=== PATIENT | female | born 2000 | race Caucasian/White ===

== ENCOUNTER 2019-10-18 07:41 | Emergency (ER) | payer BC ==
--- OUTSIDE RECORDS SUMMARY | 2019-10-18 07:50 | XMS REPORT | Continuity of Care Document ---
:1999 External Reference #:[id number] [facility] Name [facility] Address Formerly [facility] [place] [address] Care Team Providers Name Role Phone Jennifer Moncada MD - Obstetrics & Care Team Information Otolaryngologist [phone] Gynecology [facility] - Radiology Care Team Information Otolaryngologist [phone] Jory Burleson M.D. - Care Team Information Otolaryngologist [phone] Otolaryngology Psychology - Pat Care Team Information Otolaryngologist [phone] Problems Active Problems Provider Date Asthma Onset: Anxiety Payton Sanchez MD Onset: 01/20/2019 Social History Type Date Description Comments Sex Female Tobacco Use Reviewed: 08/13/19 Never Smoked Cigarettes ETOH Use Denies alcohol use Tobacco Use Reviewed: 08/13/19 Patient has never smoked Recreational Drug Use Denies Drug Use Smoking Status Reviewed: 08/13/19 Patient has never smoked Tattoo/Piercing Pierced navel Tattoo/Piercing Pierced ears Guns in Home No Allergies, Adverse Reactions, Alerts Description No Known Drug Allergies Medications Active Medications SIG Qnty Indications Ordering Provider Date Zyrtec Allergy 1 by mouth every 30caps J30.9 Chanel Kaur MD 01/28/2017 10mg day prn Capsules Xopenex 1 vial via 72ml J45.909 Payton Sanchez MD 12/06/2016 0.63mg/3ML nebulizer every Nebulizer 4-6 hours as needed Pulmicort 1 vial via twice 60ml J45.909 Juan Hernandez JR, 12/06/2016 0.5mg/2ML a day as needed Suspension Xopenex HFA 1-2 puffs by 15gm J45.998 Aleksander 11/29/2016 mouth every 4-6 MD Stephanie 45mcg/Act Aerosol hours as needed cough/wheeze--use s before sports also J45.909 Melodetta 24 Fe Z92.0 Jennifer Moncada MD 1-20mg-mcg(24) Chewtabs Effexor XR 75mg 1 po qd Unknown Caps ER 24HR History Medications Sertraline HCL 1 by mouth every 18tabs F41.1 Payton Sanchez 04/21/2019 - 50mg day for two weeks, 08/13/2019 Tablets then 1/2 by mouth for 1 week, then stop medication F42.8 Lexapro 1/2 by mouth 30tabs Payton Sanchez 04/21/2019 - 10mg every day for 08/13/2019 Tablets two weeks and then 1 by mouth every day Diflucan 1 by mouth at 2tabs J03.80 Juan Hernandez JR, 03/01/2019 - 150mg onset,december repeat 04/08/2019 Tablets in 3 days as needed Macrobid 1 by mouth twice 14caps R30.0 Delbert Valdovinos 02/28/2019 - 100mg a day x 7 days MD Stan 04/08/2019 Capsules Bactrim DS 1 by mouth twice 14tabs R30.0 Delbert Valdovinos 02/23/2019 - a day x 7 days MD Stan 02/28/2019 800-160mg Tablets Pyridium take 1 tablet by 12tabs R30.0 Delbert Valdovinos 02/23/2019 - 100mg mouth 3 times MD Stan 02/27/2019 Tablets per day Medications Administered in Office Medication SIG Qnty Indications Ordering Provider Date TB Intradermal Test Unknown 2019 Injection TB Intradermal Test ALEXI Cristina 01/11/2019 Injection TB Intradermal Test Olivia Cao PA-C 02/17/2018 Injection Immunizations CPT Code Status Date Vaccine Lot # [id number] Given 02/26/2017 Hepatitis A Vaccine Peds/Adoles. (To Age 19) 2 [id number] Dose Schedule 83599 Given 03/30/2015 Menactra - Meningococcal Conjugate Vaccine 72238 Given 03/30/2015 Varicella (Chicken Pox) Vaccine 16619 Given 04/25/2013 Adacel - Tdap 71391 Given 01/30/2004 MMR Vaccine 05709 Given 01/30/2004 Daptacel - DTaP Vaccine 24428 Given 2003 Poliovirus Vaccine Subcutaneous 55835 Given 09/22/2000 Prevnar - Pneumococcal Conjugate Vaccine 80638 Given 07/14/2000 Daptacel - DTaP Vaccine 25283 Given 06/25/2000 Prevnar - Pneumococcal Conjugate Vaccine 49882 Given 04/17/2000 Hib PRP-T Conjugate 4 Dose Schedule 81427 Given 01/16/2000 MMR Vaccine 05455 Given 01/16/2000 Varicella (Chicken Pox) Vaccine 00502 Given 1999 Hepatitis B Vaccine Pediatric/Adolescent 94605 Given 1999 Hepatitis B Vaccine Pediatric/Adolescent 57334 Given 1999 Poliovirus Vaccine Subcutaneous 44348 Given 1999 Daptacel - DTaP Vaccine 32965 Given 1999 Hib PRP-T Conjugate 4 Dose Schedule 85245 Given 1999 Poliovirus Vaccine Subcutaneous 31081 Given 1999 Daptacel - DTaP Vaccine 12212 Given 1999 Hib PRP-T Conjugate 4 Dose Schedule 98526 Given 1999 Daptacel - DTaP Vaccine 62389 Given 1999 Hib PRP-T Conjugate 4 Dose Schedule 18935 Given 1999 Hepatitis B Vaccine Pediatric/Adolescent 90028 Refused 01/20/2019 Bexsero Meningococcal Vacc 2 Dose Schedule 78290 Refused 01/20/2019 Hepatitis A Vaccine Peds/Adoles. (To Age 19) 2 Dose Schedule 77569 Refused 01/20/2019 Flu, Multi-Dose Vial W/Preservative (Age 6Mo And Up )Quad 0.5 13563 Refused 01/20/2019 Pneumococcal 23 Vaccine Vital Signs Date Vital Result Comment 08/13/2019 8:29am BP Systolic 104 mmHg BP Diastolic 80 mmHg Heart Rate 88 /min Body Temperature 98.6 F Respiratory Rate 16 /min Weight 142.00 lb Weight 64.411 kg Height 64.25 inches 5'4.25" BMI (Body Mass Index) 24.2 kg/m2 04/08/2019 1:11pm BP Systolic 118 mmHg BP Diastolic 68 mmHg Heart Rate 82 /min Body Temperature 98.6 F Respiratory Rate 16 /min Weight 136.00 lb Weight 61.690 kg Results Test Acquired Date Facility Test Result H/L Range Note Laboratory test 08/13/2019 [facility] VitD-hydrox 29 ng/mL Low 30-100 finding y CBC/Automated 08/13/2019 [facility] WBC 4.26 k/uL Low 4.60-10.20 Differential Abs Neut 3.01 2.00-7.50 % Neut 70.7 % 37.0-80.0 Abs Lymphs 0.58 K/UL Low 1.20-4.80 % Lymphs 13.7 % 10.0-50.0 Abs Monos 0.522 0.000-0.900 % Monos 12.30 % High 0.00-12.00 Abs Eos 0.081 0.000-0.700 % Eos 1.91 % 0.00-7.00 Abs Basos 0.062 0.000-0.200 % Baso 1.47 % 0.00-4.00 RBC 5.02 m/uL 4.04-6.13 Hemoglobin 14.9 g/dL 12.2-18.1 Hematocrit 44.2 % 37.7-47.0 MCV 88.1 fL 80.0-97.0 MCH 29.7 pg 27.0-31.2 MCHC 33.7 g/dL 31.8-35.4 RDW 10.9 % Low 11.6-14.8 Platelet 198 K/uL 142-424 MPV 6.9 fL 0.0-99.9 Comprehensive Metabolic 08/13/2019 [facility] Glucose 75.00 mg/dL 70.00- 110.00 Panel Urea Nitrogen 9 mg/dL 7-19 Creatinine 0.9 mg/dL 0.6-1.1 GFR 86.57 mL/min 1 Sodium 138 mmol/L 136-145 Potassium 4.6 mmol/L 3.5-5.1 Chloride 104 mmol/L 98-107 Total Protein 7.0 g/dL 6.4-8.3 Albumin 3.80 g/dL 3.30-5.00 Alanine Aminotransferase 23 U/L 0-55 Aspartate Aminotransferase 28 U/L 5-34 Alkaline Phosphatase 70 U/L 40-150 Carbon Dioxide 24.00 mmol/L 22.00-31.00 Albumin/Globulin 1.19 Ratio Osmolality 283.38 275.00-295.00 Calcium 9.30 mg/dL 8.90-10.40 Total Bilirubin 0.4 mg/dL 0.2-1.2 Globulin 3.20 2.30-4.20 BUN/Creatinine 10.23 Ratio Laboratory test finding 08/13/2019 [facility] Ferritin 30.12 ng/mL 5.00- 204.00 Iron Binding Capacity 426 g/dL (250-450) 2 Iron 83.00 g/dL 25.00-156.00 Vitamin B12 253.00 pg/mL 213.00-816.00 Folic Acid 14.80 ng/mL 7.00-31.40 TSH 1.418 uIU/mL 0.350-4.940 Urinalysis/Microscopic 04/08/2019 [facility] Color Yellow Appearance Clear Clear Leukocytes Trace Negative Nitrite Negative Negative Urobilinogen 0.2 E.U./dL 0.2-1.0 Protein Negative Negative pH 7.5 5.0-8.5 Blood (Hemoglobin) Trace-intact Abnormal Negative Specific Brady 1.015 1.005-1.025 Ketone Negative Negative Bilirubin Negative Negative Glucose Negative Negative Urine WBC 3-5 Abnormal 0-2 Urine RBC 0-2 0-2 Laboratory test 04/08/2019 [facility] Urine Culture Comment 3 finding Urinalysis/Microscopic 02/23/2019 [facility] Color Light yellow Abnormal Appearance Clear Clear Leukocytes 1+ Abnormal Negative Nitrite Negative Negative Urobilinogen 0.2 E.U./dL 0.2-1.0 Protein Negative Negative pH 7.0 5.0-8.5 Blood (Hemoglobin) 3+ Negative Specific Brady 1.020 1.005-1.025 Ketone Negative Negative Bilirubin Negative Negative Glucose Negative Negative Urine WBC 10-20 0-2 Urine RBC TNTC 0-2 Bacteria 1+ Abnormal None Observed Squamous Epithelial Cells 3-5 Abnormal Laboratory test finding 02/23/2019 [facility] Urine Culture Comment 4 1 NORMAL FUNCTION OR MILD RENAL DISEASE:>60 ml/min ADVANCED RENAL DISEASE:15-59 ml/min RENAL FAILURE:<15 ml/min 2 Unless otherwise specified, testing performed by [facility] [place] [facility], [address] [address] 3 SPECIMEN DESCRIPTION MIDSTREAM URINE,CLEAN CATCH CULTURE RESULTS MIXED UROGENITAL FORD; PLEASE SUBMIT A NEW SPEC IMEN IF CLINICALLY INDICATED. REPORT STATUS FINAL 04/09/2019 Unless otherwise specified, testing performed by [facility] [email or web address] [address] 4 SPECIMEN DESCRIPTION MIDSTREAM URINE,CLEAN CATCH CULTURE RESULTS >100,000 CFU/ML ESCHERICHIA COLI REPORT STATUS FINAL 02/25/2019 ORGANISM ESCHERICHIA COLI METHOD ANGELICA AMIKACIN <=2 SUSCEPTIBLE AMOXICILLIN/CLAVULANIC AC 4/2 SUSCEPTIBLE AMPICILLIN >=32 RESISTANT ISOLATES SUSCEPTIBLE TO AMPICILLIN ARE ALSO SUSCEPTIBLE TO AMOXICILLIN. CEFAZOLIN <=4 SUSCEPTIBLE FOR UNCOMPLICATED UTI'S,CEFAZOLIN ANGELICA RESULTS LESS THAN OR EQUAL TO 16 MCG/ML PREDICT SUSCEPTIBILITY OF THE FOLLOWING ORAL CEPHALOSPORINS:CEFACLOR,CEFDINIR, CEFPODOXIME,CEFPROZIL,CEFUROXIME AND CEPHALEXIN. IMPORTANT NOTE FOR COMPLICATED INFECTIONS SUCH UROSEPSIS CEFAZOLIN SHOULD HAVE A ANGELICA OF LESS THAN OR EQUAL TO 2 TO BE CONSIDERED SUSCEPTIBLE. CONTACT MICROBIOLOGY FOR FURTHER TESTING IF WARRANTED. CEFEPIME <=1 SUSCEPTIBLE CEFOXITIN <=4 SUSCEPTIBLE CEFTAZIDIME <=1 SUSCEPTIBLE CEFTRIAXONE <=1 SUSCEPTIBLE CIPROFLOXACIN >=4 RESISTANT GENTAMICIN >=16 RESISTANT LEVOFLOXACIN >=8 RESISTANT MEROPENEM <=0.25 SUSCEPTIBLE NITROFURANTOIN <=16 SUSCEPTIBLE PIPERACILLIN/TAZOBACTAM <=4 SUSCEPTIBLE TETRACYCLINE >=16 RESISTANT TOBRAMYCIN 8 INTERMEDIATE TRIMETH/SULFA >=16/304 RESISTANT ERTAPENEM <=0.5 SUSCEPTIBLE Unless otherwise specified, testing performed by [employer] [address] [place] [address] Procedures Description No Information Available Medical Devices Description No Information Available Encounters Type Date Location Provider Dx Diagnosis Office Visit 08/13/2019 [address] Coleen Cordon R53.83 Other fatigue 8:15a THUAN Carney R00.0 Tachycardia, unspecified F41.1 Generalized anxiety disorder Office Visit 04/08/2019 [address] Payton F42.8 Other 1:00p Silvia Sanchez MD obsessive-compulsive disorder F41.1 Generalized anxiety disorder R30.0 Dysuria Office Visit 02/23/2019 10:15a [address] Lexis Meredith PA-C R30.0 Dysuria Assessments Date Code Description Provider 08/13/2019 R53.83 Other fatigue LIBAN RodríguezP- 08/13/2019 R00.0 Tachycardia, unspecified Coleen Carney [facility] 08/13/2019 F41.1 Generalized anxiety disorder Coleen Carney [facility] 04/08/2019 F42.8 Other obsessive-compulsive disorder Payton Sanchez MD 04/08/2019 F41.1 Generalized anxiety disorder Payton Sanchez MD 04/08/2019 R30.0 Dysuria Payton Sanchez MD 02/23/2019 R30.0 Dysuria Lexis Meredith PA-C Plan of Treatment 08/13/2019 - Coleen Carney [facility].83 Other fatigueComments:Will check labs for underlying causes and advise.R00.0 Tachycardia, unspecifiedComments: Monitor symptoms. T/C Cardiology referral if sx's persist. Mother with history of WPWF41.1 Generalized anxiety disorderComments:Continue current medication. Make sure you stay active and eat healthy, this will help with mood. Call the office with any problems or concerns. Functional Status Functional Condition Comment Date Status .None Active Mental Status Description No Information Available Referrals Refer to Reason for Referral Status Appt Date [facility] [address] [address] [place] [address] [phone]
--- OUTSIDE RECORDS SUMMARY | 2019-10-18 07:50 | XMS REPORT | Continuity of Care Document ---
:1999 External Reference #:[id number] Author Name [facility] Address [facility] [place] [address] Care Team Providers Name Role Phone Jennifer Moncada MD - Obstetrics & Care Team Information [employer]tron[employer] Technician [phone] Gynecology [facility] - Radiology Care Team Information [employer]tron[employer] Technician Jory Burleson M.D. - Care Team Information [employer]tron[employer] Technician [phone] Otolaryngology Psychology - Pat Care Team Information [employer]tron[employer] Technician [phone] Daniel Khan - Cardiovascular Care Team Information [employer]tron[employer] Technician Disease Problems Active Problems Provider Date Asthma Onset: [...] Jennifer Moncada MD 1-20mg-mcg(24) Chewtabs Effexor XR 1 by mouth 90caps Payton Sanchez MD 75mg Caps ER 24HR every day History Medications Sertraline HCL 1 by mouth every 18tabs F41.1 Payton Sanchez 04/21/2019 - 50mg day for two weeks, 08/13/2019 Tablets then 1/2 by mouth for 1 week, then stop medication F42.8 Lexapro 1/2 by mouth 30tabs Payton Sanchez MD 04/21/2019 - 10mg every day for 08/13/2019 Tablets two weeks and then 1 by mouth every day Medications Administered in Office Medication SIG Qnty Indications Ordering Provider Date TB Intradermal Test Unknown 2019 Injection TB Intradermal Test ALEXI Cristina 01/11/2019 Injection TB Intradermal Test Olivia Cao PA-C 02/17/2018 Injection Immunizations CPT Code Status Date Vaccine Lot # [id number] Given 02/26/2017 Hepatitis A Vaccine Peds/Adoles. (To Age 19) 2 [id number] Dose Schedule 62321 Given 03/30/2015 Menactra - Meningococcal Conjugate Vaccine 93688 Given 03/30/2015 Varicella (Chicken Pox) Vaccine 47637 Given 04/25/2013 Adacel - Tdap 10845 Given 01/30/2004 MMR Vaccine 87033 Given 01/30/2004 Daptacel - DTaP Vaccine 56941 Given 2003 Poliovirus Vaccine Subcutaneous 98692 Given 09/22/2000 Prevnar - Pneumococcal Conjugate Vaccine 29765 Given 07/14/2000 Daptacel - DTaP Vaccine 13680 Given 06/25/2000 Prevnar - Pneumococcal Conjugate Vaccine 07783 Given 04/17/2000 Hib PRP-T Conjugate 4 Dose Schedule 94158 Given 01/16/2000 MMR Vaccine 97329 Given 01/16/2000 Varicella (Chicken Pox) Vaccine 67894 Given 1999 Hepatitis B Vaccine Pediatric/Adolescent 61312 Given 1999 Hepatitis B Vaccine Pediatric/Adolescent 77520 Given 1999 Poliovirus Vaccine Subcutaneous 13526 Given 1999 Daptacel - DTaP Vaccine 06832 Given 1999 Hib PRP-T Conjugate 4 Dose Schedule 47138 Given 1999 Poliovirus Vaccine Subcutaneous 34690 Given 1999 Daptacel - DTaP Vaccine 93696 Given 1999 Hib PRP-T Conjugate 4 Dose Schedule 65913 Given 1999 Daptacel - DTaP Vaccine 04239 Given 1999 Hib PRP-T Conjugate 4 Dose Schedule 56965 Given 1999 Hepatitis B Vaccine Pediatric/Adolescent 62726 Refused 01/20/2019 Bexsero Meningococcal Vacc 2 Dose Schedule 03544 Refused 01/20/2019 Hepatitis A Vaccine Peds/Adoles. (To Age 19) 2 Dose Schedule 42496 Refused 01/20/2019 Flu, Multi-Dose Vial W/Preservative (Age 6Mo And Up )Quad 0.5 08320 Refused 01/20/2019 Pneumococcal 23 Vaccine Vital Signs [...] Date Facility Test Result H/L Range Note CBC/Automated 09/08/2019 [facility] WBC 5.84 k/uL 4.60-10.20 Differential Abs Neut 3.02 2.00-7.50 % Neut 51.7 % 37.0-80.0 Abs Lymphs 2.22 K/UL 1.20-4.80 % Lymphs 38.1 % 10.0-50.0 Abs Monos 0.393 0.000-0.900 % Monos 6.73 % 0.00-12.00 Abs Eos 0.148 0.000-0.700 % Eos 2.53 % 0.00-7.00 Abs Basos 0.058 0.000-0.200 % Baso 1.00 % 0.00-4.00 RBC 4.95 m/uL 4.04-6.13 Hemoglobin 14.9 g/dL 12.2-18.1 Hematocrit 44.0 % 37.7-47.0 MCV 88.9 fL 80.0-97.0 MCH 30.1 pg 27.0-31.2 MCHC 33.8 g/dL 31.8-35.4 RDW 10.8 % Low 11.6-14.8 Platelet 242 K/uL 142-424 MPV 6.7 fL 0.0-99.9 Laboratory test finding 08/13/2019 [facility] VitD-hydroxy 29 ng/mL Low 30-100 CBC/Automated 08/13/2019 [facility] WBC 4.26 k/uL Low 4.60-10.20 Differential [...] BUN/Creatinine 10.23 Ratio Laboratory test finding 08/13/2019 [facility] Ferritin 30.12 ng/mL 5.00- 204.00 Iron Binding Capacity 426 g/dL (250-450) 2 Iron 83.00 g/dL 25.00-156.00 Vitamin B12 253.00 pg/mL 213.00-816.00 Folic Acid 14.80 ng/mL 7.00-31.40 TSH 1.418 uIU/mL 0.350-4.940 Urinalysis/Microscopic 04/08/2019 [facility] Color Yellow Appearance Clear Clear Leukocytes Trace Negative Nitrite Negative Negative Urobilinogen 0.2 E.U./dL 0.2-1.0 Protein Negative Negative pH 7.5 5.0-8.5 Blood (Hemoglobin) Trace-intact Abnormal Negative Specific Maybee 1.015 1.005-1.025 Ketone Negative Negative Bilirubin Negative Negative Glucose Negative Negative Urine WBC 3-5 Abnormal 0-2 Urine RBC 0-2 0-2 Laboratory test finding 04/08/2019 [facility] Urine Culture Comment 3 1 NORMAL FUNCTION OR MILD RENAL DISEASE:>60 ml/min ADVANCED RENAL DISEASE:15-59 ml/min RENAL FAILURE:<15 ml/min 2 Unless otherwise specified, testing performed by [facility], [address] [address] 3 SPECIMEN DESCRIPTION MIDSTREAM URINE,CLEAN CATCH CULTURE RESULTS MIXED UROGENITAL FORD; PLEASE SUBMIT A NEW SPEC IMEN IF CLINICALLY INDICATED. REPORT STATUS FINAL 04/09/2019 Unless otherwise specified, testing performed by [facility] [employer] [address] [place] [address] Procedures Description No Information Available Medical Devices Description No Information Available Encounters Type Date Location Provider Dx Diagnosis Office Visit 08/13/2019 [address] Coleen Cordon R53.83 Other fatigue 8:15a LIBAN CarneyP- R00.0 Tachycardia, unspecified F41.1 Generalized anxiety disorder Office Visit 04/08/2019 [address] Payton F42.8 Other 1:00p Silvia Sanchez MD obsessive-compulsive disorder F41.1 Generalized anxiety disorder R30.0 Dysuria Assessments Date Code Description Provider 09/08/2019 D72.819 Decreased white blood cell count, BOB Rodríguez-BC unspecified 08/13/2019 R53.83 Other fatigue BOB Rodríguez-ATUL 08/13/2019 R00.0 Tachycardia, unspecified BOB Rodríguez-BC 08/13/2019 F41.1 Generalized anxiety disorder THUAN Rodríguez 04/08/2019 F42.8 Other obsessive-compulsive disorder Payton Sanchez MD 04/08/2019 F41.1 Generalized anxiety disorder Payton Sanchez MD 04/08/2019 R30.0 Dysuria Payton Sanchez MD Plan of Treatment 08/13/2019 - Coleen Carney [facility] Other fatigueComments:Will check labs for underlying [...] to Reason for Referral Status Appt Date Daniel Khan cardiac evaluation for Palpitations with exercise, Sent 00 Family Hx of WPW [facility] [address], [address] [place] [address] [phone] [facility] Anxiety and OCD Closed [address] [facility] [address] J[place] Simon [address] [phone]
[2019-10-18 07:55] VITALS: BP 112/75
--- NOTE | 2019-10-18 08:07 | UC ---
Complaint Female HPI - HPI Summary HPI Summary: 19-year-old female presents stating onset of dysuria, frequency, and urgency this morning. Associated with some mild suprapubic discomfort. Denies fever, chills, back or flank pain, nausea, vomiting, hematuria, or vaginal discharge. - History Of Current Complaint Chief Complaint: UCGU Stated Complaint: URINARY Time Seen by Provider: 10/18/19 07:57 Hx Obtained From: Patient Hx Last Menstrual Period: 09/22/2019 Pain Intensity: 2 - Allergies/Home Medications Allergies/Adverse Reactions: Allergies Allergy/AdvReac Type Severity Reaction Status Date / Time No Known Allergies Allergy Verified 10/18/19 07:52 Home Medications: Home Medications Control Pill 1 tab PO DAILY 10/18/19 [History Confirmed 10/18/19] Phenazopyridine TAB* [Pyridium 100 mg TAB*] 100 mg PO TID #6 tab 10/18/19 [Rx] Sulfamethox/Trimethoprim DS* [Bactrim DS 800/160 TAB*] 1 tab PO BID #10 tab [Rx] Venlafaxine EXT RELEASE CAP* [Effexor Xr CAP*] 150 mg PO DAILY 10/18/19 [ History Confirmed 10/18/19] PMH/Surg Hx/FS Hx/Imm Hx Previously Healthy: Yes Psychological History: Depression - Surgical History Surgical History: Yes Surgery Procedure, Year, and Place: L shoulder labrum repair. tonsillectomy - Family History Known Family History: Positive: Non-Contributory - Social History Occupation: Student Lives: Dormitory/Roommates Alcohol Use: Occasionally Substance Use Type: None Smoking Status (MU): Never Smoked Tobacco Review of Systems All Other Systems Reviewed And Are Negative: Yes Constitutional: Negative: Fever, Chills Respiratory: Positive: Negative Cardiovascular: Positive: Negative Gastrointestinal: Positive: Abdominal Pain - Suprapubic. Negative: Vomiting, Nausea Genitourinary: Positive: Dysuria, Frequency, Urgency. Negative: Hematuria, Vaginal/Penile Discharge Musculoskeletal: Positive: Negative Neurological/Mental Status: Positive: Negative Is Patient Immunocompromised?: No Physical Exam - Summary Physical Exam Summary: GENERAL APPEARANCE: Well developed, well nourished, alert and cooperative, and appears to be in no acute distress. EYES: Conjunctiva clear. No drainage. EARS: External auditory canals and tympanic membranes clear, hearing grossly intact. NOSE: No nasal discharge. THROAT: Pharynx normal. Tonsils surgically absent. Uvula midline. NECK: Neck supple, non-tender without lymphadenopathy. CARDIAC: Normal S1 and S2. No S3, S4 or murmurs. Rhythm is regular. There is no peripheral edema, cyanosis or pallor. Extremities are warm and well perfused. Capillary refill is less than 2 seconds. Peripheral pulses intact. LUNGS: Clear to auscultation without rales, rhonchi, wheezing or diminished breath sounds. ABDOMEN: Positive bowel sounds. Soft, nondistended, nontender. No guarding or rebound. No masses or hepatosplenomegally. No CVA tenderness. MUSKULOSKELETAL: ROM intact to all extremities. No joint erythema or tenderness. Normal muscular development. Normal gait. SKIN: Skin normal color, texture and turgor with no lesions or eruptions. Triage Information Reviewed: Yes Vital Signs: Initial Vital Signs Temp 97.6 F 10/18/19 07:50 Pulse 102 10/18/19 07:50 Resp 14 10/18/19 07:50 BP 112/75 10/18/19 07:50 Pulse Ox 97 10/18/19 07:50 Vital Signs Reviewed: Yes Complaint Female Dx - Course Course Of Treatment: 19-year-old female presents stating onset of dysuria, frequency, and urgency this morning. Associated with some mild suprapubic discomfort. Denies fever, chills, back or flank pain, nausea, vomiting, hematuria, or vaginal discharge. Afebrile. Vital signs stable. Patient's exam was overall unremarkable. Point- of-care urinalysis showed 2+ leukocyte esterase, trace blood, and 1+ protein. Urine negative. Results reviewed with the patient. We'll treat for a urinary tract infection with Bactrim DS 1 tablet twice daily 5 days as well as provide her with Pyridium 100 mg 3 times a day 3 days to help with the discomfort. She is to return here or [place] [facility] [place] if symptoms are not improving. Anticipatory guidance and warning symptoms were reviewed with the patient. Verbalizes understanding and agrees with plan of care. - Differential Dx/Diagnosis Differential Diagnosis/HQI/PQRI: , Renal Colic, Sexually Transmitted Disease, Urinary Tract Infection Provider Diagnosis: UTI (urinary tract infection) Discharge ED - Sign-Out/Discharge Documenting (check all that apply): Patient Departure All imaging exams completed and their final reports reviewed: No Studies - Discharge Plan Condition: Stable Disposition: HOME Prescriptions: Phenazopyridine TAB* [Pyridium 100 mg TAB*] 100 mg PO TID #6 tab Sulfamethox/Trimethoprim DS* [Bactrim DS 800/160 TAB*] 1 tab PO BID #10 tab Patient Education Materials: Urinary Tract Infection in Women (ED) Referrals: No Primary Care Phys,NOPCP [Primary Care Provider] - Additional Instructions: Your urine test in the clinic today is suggestive of a urinary tract infection. We will start you on an antibiotic to treat for the infection. We will also send a urine culture today to see what bacteria grow out and make sure the antibiotic you were prescribed is appropriate to treat the infection. It will take 48-72 hours to get these results. We will contact you if there is any change in your treatment plan. Start Bactrim DS 1 tab twice a day for 5 days. Take Pyridium 1 tablet every 8 hours for next 2 days to help with the discomfort. This medication will turn your urine an orange color. Drink plenty of fluids. To help prevent urinary tract infections: 1) Be sure to wipe from front to back. 2) Urinate immediately after any sexual intercourse. 3) Avoid taking bubble baths. Follow up with the [facility] in 3-5 days if symptoms persist. Seek immediate medical attention in the emergency room if you develop fever greater than 100.5 F, have severe abdominal pain, persistent vomiting, or any worsening of symptoms. - Billing Disposition and Condition Condition: STABLE Disposition: Home
--- NOTE | 2019-10-21 07:18 | UC ---
- Progress Note Progress Note: please notify pt we need to change antibiotic keflex 500mg BID x 5 days eRxed jld Course/Dx - Diagnoses Provider Diagnoses: UTI (urinary tract infection) Discharge ED - Sign-Out/Discharge Documenting (check all that apply): Post-Discharge Follow Up All imaging exams completed and their final reports reviewed: No Studies - Discharge Plan Condition: Stable Disposition: HOME Prescriptions: Cephalexin CAP* [Keflex CAP*] 500 mg PO BID #10 cap Phenazopyridine TAB* [Pyridium 100 mg TAB*] 100 mg PO TID #6 tab Sulfamethox/Trimethoprim DS* [Bactrim DS 800/160 TAB*] 1 tab PO BID #10 tab Patient Education Materials: Urinary Tract Infection in Women (ED) Referrals: No Primary Care Phys,NOPCP [Primary Care Provider] - Additional Instructions: Your urine test in the clinic today is suggestive of a urinary tract infection. We will start you on an antibiotic to treat for the infection. We will also send a urine culture today to see what bacteria grow out and make sure the antibiotic you were prescribed is appropriate to treat the infection. It will take 48-72 hours to get these results. We will contact you if there is any change in your treatment plan. Start Bactrim DS 1 tab twice a day for 5 days. Take Pyridium 1 tablet every 8 hours for next 2 days to help with the discomfort. This medication will turn your urine an orange color. Drink plenty of fluids. To help prevent urinary tract infections: 1) Be sure to wipe from front to back. 2) Urinate immediately after any sexual intercourse. 3) Avoid taking bubble baths. Follow up with the [facility] [place] in 3-5 days if symptoms persist. Seek immediate medical attention in the emergency room if you develop fever greater than 100.5 F, have severe abdominal pain, persistent vomiting, or any worsening of symptoms. - Billing Disposition and Condition Condition: STABLE Disposition: Home
== END 2019-10-18 08:25 | disposition home or self-care (01) ==
LOC: UCCORT 07:41
DX: N39.0 Urinary tract infection, site not specified (principal); F32.9 Major depressive disorder, single episode, unspecified; Z79.899 Other long term (current) drug therapy
CPT/HCPCS: 81003; 84702; 87077; 87086; 87186; 99202; G0463